=== PATIENT | female | born 1990 | race American Indian/Alaskan Native ===

== ENCOUNTER 2016-10-26 03:45 | Emergency (ER) | payer MEDICAID ==
[2016-10-26 05:13] VITALS: BP 139/83
[2016-10-26] MEDS ORDERED: NORCO 5/325 ONE (05:16)
[2016-10-26] MEDS ORDERED: NORCO 5/325 PO ONE (05:20)
== END 2016-10-26 07:12 | disposition left against medical advice (07) ==
LOC: ED 03:45 → TRG 03:45 → EDSTATUS 04:49 → ED 07:12
DX: O26.893 Other specified pregnancy related conditions, third trimester (principal); R10.9 Unspecified abdominal pain; Z53.21 Procedure and treatment not carried out due to patient leaving prior to being seen by health care provider; Z3A.30 30 weeks gestation of pregnancy

== ENCOUNTER 2017-01-29 13:59 | Emergency (ER) | payer MEDICAID | END 2017-01-29 14:00 | disposition left against medical advice (07) | LOC: ED 13:59 | DX: I10 Essential (primary) hypertension (principal); Z53.21 Procedure and treatment not carried out due to patient leaving prior to being seen by health care provider ==

== ENCOUNTER 2017-07-16 19:39 | Emergency (ER) | payer MEDICAID ==
[2017-07-16 20:52] VITALS: BP 160/84
[2017-07-16] MEDS ORDERED: MOTRIN ONE (21:32)
[2017-07-16] MEDS ORDERED: MOTRIN PO ONE (21:34)
[2017-07-16] MEDS ORDERED: MORPHINE IM ONE (21:41)
--- NOTE | 2017-07-16 21:45 | Emergency Department Report ---
HPI - General Chief Complaint: Dental/Oral Time Seen by Provider: 07/16/17 21:41 - HPI HPI: 27-year-old female presents to the emergency department with complaint of pain to the gum and jaw to the right lower portion that started this morning. She has a history of some type of dental infection in that area last year that led to her getting "dental surgery" in which she got her teeth pulled. She is not had much pain since that time but starting this morning she has been having some sharp, intense, intermittent pains in that area. She has a past medical history of hypertension. She did not take anything for her symptoms have presentation. She denies any problems with swallowing, facial swelling, fever. No recent travel or sick contacts. ED Past Medical Hx - Past Medical History Previous Medical History?: Yes Hx Hypertension: Yes Hx Diabetes: No Hx Deep Vein Thrombosis: No Hx Renal Disease: No Hx Sickle Cell Disease: No Hx Seizures: No Hx Asthma: No Additional medical history: 30 weeks - Surgical History Additional Surgical History: Mouth surgery - Social History Smoking Status: Current Every Day Smoker Substance Use Type: None - Medications Home Medications: Home Medications Medication Instructions Recorded Confirmed Last Taken Type Lisinopril [Zestril TAB] 10 mg PO QDAY 07/16/17 07/16/17 Unknown History Sulfamethoxazole/Trimethoprim 1 each PO BID #10 tablet 07/16/17 Unknown Rx [Bactrim DS TAB] oxyCODONE /ACETAMINOPHEN [Percocet 1 tab PO Q6HR PRN #10 tablet 07/16/17 Unknown Rx 5/325] ED Review of Systems ROS: Stated complaint: TOOTHACHE Other details as noted in HPI Comment: All other systems reviewed and negative Constitutional: denies: chills, fever Eyes: denies: eye pain, eye discharge, vision change ENT: dental pain. denies: throat pain Respiratory: denies: cough, shortness of breath, wheezing Cardiovascular: denies: chest pain, palpitations Gastrointestinal: denies: abdominal pain, nausea, diarrhea Genitourinary: denies: urgency, dysuria, discharge Musculoskeletal: denies: back pain, joint swelling, arthralgia Skin: denies: rash, lesions Neurological: denies: headache, weakness, paresthesias Physical Exam - Physical Exam Vital Signs: Vital Signs 07/16/17 07/16/17 20:45 21:34 Temperature 99.4 F Pulse Rate 70 Respiratory 16 18 Rate Blood Pressure 160/84 O2 Sat by Pulse 100 Oximetry ED Course Vital Signs 07/16/17 07/16/17 20:45 21:34 Temperature 99.4 F Pulse Rate 70 Respiratory 16 18 Rate Blood Pressure 160/84 O2 Sat by Pulse 100 Oximetry ED Medical Decision Making - Differential Diagnosis dental abscess, TMJ, trigeminal neuralgia Critical care attestation.: If time is entered above; I have spent that time in minutes in the direct care of this critically ill patient, excluding procedure time. ED Disposition Clinical Impression: Jaw pain, Pain in gums Hypertension Qualifiers: Hypertension type: essential hypertension Qualified Code(s): I10 - Essential ( primary) hypertension Disposition: TO HOME OR SELFCARE Is pt being admited?: No Condition: Stable Instructions: Hypertension (ED) Additional Instructions: You were seen today for pain in the jaw/gums. Follow-up with your dental surgeon. Return to the emergency Department with any worsening of her symptoms , inability to swallow, facial swelling, development of fever, or with any acute distress. Prescriptions: oxyCODONE /ACETAMINOPHEN [Percocet 5/325] 1 tab PO Q6HR PRN #10 tablet PRN Reason: Pain Sulfamethoxazole/Trimethoprim [Bactrim DS TAB] 1 each PO BID #10 tablet Referrals: [facility] [Outside] - 3-5 Days Time of Disposition: 21:47
== END 2017-07-16 22:12 | disposition home or self-care (01) ==
LOC: ED 19:39
DX: R68.84 Jaw pain (principal); I10 Essential (primary) hypertension; F17.200 Nicotine dependence, unspecified, uncomplicated
CPT/HCPCS: 96372; 99282; J2270

== ENCOUNTER 2017-12-21 19:50 | Emergency (ER) | payer MEDICAID ==
[2017-12-21 22:12] VITALS: BP 165/101
[2017-12-21] MEDS ORDERED: TYLENOL ONE ×2 (22:16→22:23)
[2017-12-21] MEDS ORDERED: NACL 0.9% 500 ML 500 ML IV ONE (22:20)
[2017-12-21] MEDS ORDERED: TYLENOL PO STA (22:20)
[2017-12-21 23:03] LABS: Basophils # (Auto) 0.1 K/mm3 (0.0-0.1); Basophils % (Auto) 0.8 % (0.0-1.8); Eosinophils # (Auto) 0.1 K/mm3 (0.0-0.4); Eosinophils % (Auto) 0.5 % (0.0-4.3); Hematocrit 36.5 % (30.3-42.9); Lymphocytes # (Auto) 2.5 K/mm3 (1.2-5.4); Lymphocytes % (Auto) 24.5 % (13.4-35.0); Mean Corpuscular HGB Conc 33 % (30-34); Mean Corpuscular Hemoglobin 28 pg (28-32); Mean Corpuscular Volume 85 fl (79-97); Monocytes # (Auto) 0.9 K/mm3 (0.0-0.8); Monocytes % (Auto) 8.6 % (0.0-7.3); Platelet Count 233 K/mm3 (140-440); Red Blood Count 4.31 M/mm3 (3.65-5.03); Red Cell Distribution Width 15.6 % (13.2-15.2)
[2017-12-21 23:12] LABS: INR 0.94 (0.87-1.13)
[2017-12-21 23:40] LABS: Alanine Aminotransferase 8 units/L (7-56); BUN/Creatinine Ratio 11; Blood Urea Nitrogen 8 mg/dL (7-17); Calcium 8.8 mg/dL (8.4-10.2); Hemolysis Index 1
--- NOTE | 2017-12-22 00:29 | XRay Report ---
FINAL REPORT PROCEDURE: XR CHEST 1V AP TECHNIQUE: Chest radiograph anteroposterior view. CPT 76156 HISTORY: possible Sepsis COMPARISON: No prior studies are available for comparison. FINDINGS: Heart: Normal. Mediastinum/Vessels: Normal. Lungs/Pleural space: Normal. Bony thorax: No acute osseous abnormality. Life support devices: None. IMPRESSION: No acute cardiopulmonary abnormality.
--- NOTE | 2017-12-22 02:10 | Emergency Department Report ---
ED ENT HPI - General Chief complaint: Sore Throat Stated complaint: SORE THROAT, BODY PAIN Source: patient Mode of arrival: Ambulatory Limitations: No Limitations - History of Present Illness Initial comments: 27-year-old -[place] female comes in for 1 day history of sore throat and body aches with headache and nausea. Patient reports that she took some [id number] TheraFlu. Patient points has a past medical history of hypertension but doesn't take her medicine on a daily basis but she reports she checks her blood pressure daily. Patient reports is painful to swallow. MD complaint: sore throat, difficulty swallowing -: days(s) (1) Location: throat Severity: severe Severity scale (0 -10): 10 Quality: burning, sharp Consistency: constant Improves with: none Worsens with: swallowing Associated Symptoms: fever, pain with swallowing, sore throat - Related Data Home Medications Medication Instructions Recorded Confirmed Last Taken Lisinopril [Zestril TAB] 10 mg PO QDAY 07/16/17 07/16/17 Unknown Previous Rx's Medication Instructions Recorded Last Taken Type Sulfamethoxazole/Trimethoprim 1 each PO BID #10 tablet 07/16/17 Unknown Rx [Bactrim DS TAB] oxyCODONE /ACETAMINOPHEN [Percocet 1 tab PO Q6HR PRN #10 tablet 07/16/17 Unknown Rx 5/325] Amoxicillin [Amoxicillin TAB] 875 mg PO BID #20 tablet 12/22/17 Unknown Rx Ibuprofen [Motrin 800 MG tab] 800 mg PO Q8HR #30 tablet 12/22/17 Unknown Rx Allergies Allergy/AdvReac Type Severity Reaction Status Date / Time No Known Allergies Allergy Unverified 10/26/16 03:52 ED Dental HPI - General Chief complaint: Sore Throat Stated complaint: SORE THROAT, BODY PAIN Source: patient Mode of arrival: Ambulatory Limitations: No Limitations - Related Data Home Medications Medication Instructions Recorded Confirmed Last Taken Lisinopril [Zestril TAB] 10 mg PO QDAY 18 07/16/17 Unknown Previous Rx's Medication Instructions Recorded Last Taken Type Sulfamethoxazole/Trimethoprim 1 each PO BID #10 tablet 07/16/17 Unknown Rx [Bactrim DS TAB] oxyCODONE /ACETAMINOPHEN [Percocet 1 tab PO Q6HR PRN #10 tablet 07/16/17 Unknown Rx 5/325] Amoxicillin [Amoxicillin TAB] 875 mg PO BID #20 tablet 12/22/17 Unknown Rx Ibuprofen [Motrin 800 MG tab] 800 mg PO Q8HR #30 tablet 12/22/17 Unknown Rx Allergies Allergy/AdvReac Type Severity Reaction Status Date / Time No Known Allergies Allergy Unverified 10/26/16 03:52 ED Review of Systems ROS: Stated complaint: SORE THROAT, BODY PAIN Other details as noted in HPI Constitutional: fever Eyes: denies: eye pain, eye discharge, vision change ENT: throat pain Respiratory: denies: cough, shortness of breath, wheezing Cardiovascular: denies: chest pain, palpitations Gastrointestinal: nausea Genitourinary: denies: urgency, dysuria, discharge Musculoskeletal: denies: back pain, joint swelling, arthralgia Skin: denies: rash, lesions Neurological: headache. denies: weakness, paresthesias ED Past Medical Hx - Past Medical History Previous Medical History?: Yes Hx Hypertension: Yes Hx Diabetes: No Hx Deep Vein Thrombosis: No Hx Renal Disease: No Hx Sickle Cell Disease: No Hx Seizures: No Hx Asthma: No Additional medical history: 30 weeks - Surgical History Past Surgical History?: Yes Additional Surgical History: Mouth surgery - Social History Smoking Status: Current Some Day Smoker - Medications Home Medications: Home Medications Medication Instructions Recorded Confirmed Last Taken Type Lisinopril [Zestril TAB] 10 mg PO QDAY 07/16/17 07/16/17 Unknown History Sulfamethoxazole/Trimethoprim 1 each PO BID #10 tablet 07/16/17 Unknown Rx [Bactrim DS TAB] oxyCODONE /ACETAMINOPHEN [Percocet 1 tab PO Q6HR PRN #10 tablet 07/16/17 Unknown Rx 5/325] Amoxicillin [Amoxicillin TAB] 875 mg PO BID #20 tablet 12/22/17 Unknown Rx Ibuprofen [Motrin 800 MG tab] 800 mg PO Q8HR #30 tablet 12/22/17 Unknown Rx ED Physical Exam - General Limitations: No Limitations General appearance: alert, in no apparent distress - Head Head exam: Present: atraumatic, normocephalic - Eye Eye exam: Present: EOMI - Expanded ENT Exam Expanded Throat exam: Positive: tonsillar erythema, tonsillomegaly - Neck Neck exam: Present: tenderness, lymphadenopathy - Respiratory Respiratory exam: Present: normal lung sounds bilaterally. Absent: respiratory distress - Cardiovascular Cardiovascular Exam: Present: regular rate, normal rhythm. Absent: systolic murmur, diastolic murmur, rubs, gallop - GI/Abdominal GI/Abdominal exam: Present: soft, normal bowel sounds ED Course Vital Signs 12/21/17 12/21/17 22:10 22:30 Temperature 102.8 F H Pulse Rate 100 H Respiratory 18 20 Rate Blood Pressure 165/101 O2 Sat by Pulse 98 Oximetry ED Medical Decision Making - Lab Data Result diagrams: 12/21/17 22:49 12/21/17 22:49 - Medical Decision Making Patient has been evaluated by this provider in fast track. Patient was given Tylenol in triage. Patient was started on the sepsis protocol Strep test came back positive Will discharge patient on ibuprofen and amoxicillin Patients to follow up with her primary care provider Critical care attestation.: If time is entered above; I have spent that time in minutes in the direct care of this critically ill patient, excluding procedure time. ED Disposition Clinical Impression: Strep pharyngitis, Obesity, morbid, BMI 40.0-49.9, Hypertension goal BP (blood pressure) < 130/80 Disposition: DC-01 TO HOME OR SELFCARE Is pt being admited?: No Does the pt Need Aspirin: No Condition: Stable Instructions: Strep Throat (ED), Hypertension (ED), Obesity (ED), Heart Healthy Diet (ED), DASH Eating Plan (ED), Low Sodium Diet (ED), Chronic Hypertension (ED) Additional Instructions: Complete antibiotics as prescribed. Ibuprofen for pain management as needed. DASH diet Prescriptions: Amoxicillin [Amoxicillin TAB] 875 mg PO BID #20 tablet Ibuprofen [Motrin 800 MG tab] 800 mg PO Q8HR #30 tablet Referrals: PRIMARY CARE, [Primary Care Provider] - 3-5 Days Forms: Work/School Release Form(ED), Accompanied Note
[2017-12-22] MEDS ORDERED: MOTRIN PO ONE (03:04)
== END 2017-12-22 03:15 | disposition home or self-care (01) ==
LOC: ED 19:50
DX: J02.0 Streptococcal pharyngitis (principal); E66.01 Morbid (severe) obesity due to excess calories; I10 Essential (primary) hypertension; F17.200 Nicotine dependence, unspecified, uncomplicated; Z68.42 Body mass index [BMI] 45.0-49.9, adult
CPT/HCPCS: 36415; 71045; 80053; 82140; 82805; 84703; 85025; 85610; 87040; 87430; 93005; 93010

== ENCOUNTER 2018-11-16 17:33 | Emergency (ER) | payer MEDICAID, OTHER ==
[2018-11-16 18:07] VITALS: BP 178/111
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
[2018-11-16] MEDS ORDERED: TYLENOL PO ONE (19:39)
[2018-11-16] MEDS ORDERED: ULTRAM PO ONE (19:39)
[2018-11-16] MEDS ORDERED: ULTRAM ONE (19:41)
[2018-11-16] MEDS ORDERED: TYLENOL ONE (19:41)
[2018-11-16] MEDS ORDERED: TORADOL ONE (20:55)
[2018-11-16] MEDS ORDERED: TORADOL IM ONE (20:55)
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
== END 2018-11-17 00:15 | disposition home or self-care (01) ==
LOC: ED 17:33
DX: S16.1XXA Strain of muscle, fascia and tendon at neck level, initial encounter (principal); M54.12 Radiculopathy, cervical region; V89.2XXA Person injured in unspecified motor-vehicle accident, traffic, initial encounter; Y93.89 Activity, other specified; Y92.89 Other specified places as the place of occurrence of the external cause; Y99.8 Other external cause status
CPT/HCPCS: 72040; 72100; 96372; 99283; J1885